=== PATIENT | male | born 1980 | race Caucasian/White ===

== ENCOUNTER 2017-09-19 08:28 | Inpatient (IN) | payer SELFPAY ==
[2017-09-19] VITALS (22 sets, daily range): BP systolic 81–124; BP diastolic 50–101
[~2017-09-19] VITALS: Ht 177.8 cm; Wt 79.7 kg
[2017-09-19 08:59] LABS: BASOPHIL (%) 0.5 % (0-1); BASOPHIL COUNT 0.1 K/uL (0-0.1); EOSINOPHIL (%) 1.7 % (0-5); EOSINOPHIL COUNT 0.2 K/uL (0-0.3); HEMATOCRIT 43.3 % (38.0-50.0); HEMOGLOBIN 14.9 G/DL (12.5-16.6); IMMATURE GRANULOCYTE (%) 0.4 % (0.0-0.7); LYMPHOCYTE (%) 26.6 % (15-42); LYMPHOCYTE COUNT 3.1 K/uL (1.0-2.8); MCHC 34.4 G/DL (30.0-36.0); MCV 92.9 FL (86-99); MONOCYTE (%) 3.6 % (3-12); MONOCYTE COUNT 0.4 K/uL (0-0.8); NEUTROPHIL (%) 67.2 % (45-76); NEUTROPHIL COUNT 7.9 K/uL (1.8-6.4); PLATELET COUNT 275 K/uL (156-360); RBC DIS.WIDTH-CV 13.2 % (11.8-14.6); RED BLOOD COUNT 4.66 M/uL (4.00-5.50); WHITE BLOOD COUNT 11.8 K/uL (4.1-10.2)
[2017-09-19 09:09] LABS: PTT 27.4 SEC (25-37)
[2017-09-19 09:10] LABS: AMYLASE 65 IU/L (1-118); CHLORIDE 102 mEq/L (99-109); POTASSIUM 3.6 mEq/L (3.7-5.4); SODIUM 137 mEq/L (136-147)
[2017-09-19 09:12] LABS: GLUCOSE 226 mg/dL (70-99)
[2017-09-19 09:15] LABS: SERUM ETHYL ALCOHOL < 10 mg/dL
[2017-09-19 09:16] LABS: CREATININE 1.2 mg/dL (0.6-1.3); GFR ESTIMATE (CALCULATED) > 59 mL/min/ (58.99-99999)
[2017-09-19 09:17] LABS: UREA NITROGEN (BUN) 14 mg/dL (9-23)
[2017-09-19 09:19] LABS: LIPASE 21 U/L (1.0-51.0)
[2017-09-19 09:20] LABS: TROP-I INTERPRETATION NEGATIVE; TROPONIN-I < 0.01 ng/mL (0.0-0.30)
[2017-09-19 16:55] LABS: TROP-I INTERPRETATION POSITIVE; TROPONIN-I 34.11 ng/mL (0.0-0.30)
[2017-09-19 21:41] LABS: TROP-I INTERPRETATION POSITIVE; TROPONIN-I 32.31 ng/mL (0.0-0.30)
[2017-09-20] VITALS (20 sets, daily range): BP systolic 81–97; BP diastolic 48–65
[2017-09-20 03:19] LABS: BASOPHIL (%) 0.3 % (0-1); EOSINOPHIL (%) 0.6 % (0-5); EOSINOPHIL COUNT 0.1 K/uL (0-0.3); HEMATOCRIT 37.4 % (38.0-50.0); HEMOGLOBIN 13.1 G/DL (12.5-16.6); IMMATURE GRANULOCYTE (%) 0.4 % (0.0-0.7); LYMPHOCYTE (%) 20.1 % (15-42); LYMPHOCYTE COUNT 2.3 K/uL (1.0-2.8); MCH 32.1 PG (29.0-34.0); MCV 91.7 FL (86-99); MONOCYTE (%) 4.5 % (3-12); MONOCYTE COUNT 0.5 K/uL (0-0.8); NEUTROPHIL (%) 74.1 % (45-76); NEUTROPHIL COUNT 8.4 K/uL (1.8-6.4); PLATELET COUNT 209 K/uL (156-360); RBC DIS.WIDTH-CV 13.2 % (11.8-14.6); RBC DIS.WIDTH-SD 44.9 % (39-53); RED BLOOD COUNT 4.08 M/uL (4.00-5.50); WHITE BLOOD COUNT 11.3 K/uL (4.1-10.2)
[2017-09-20 03:31] LABS: CHLORIDE 109 mEq/L (99-109); SODIUM 138 mEq/L (136-147)
[2017-09-20 03:33] LABS: GLUCOSE 89 mg/dL (70-99)
[2017-09-20 03:36] LABS: CREATININE 0.9 mg/dL (0.6-1.3); GFR ESTIMATE (CALCULATED) > 59 mL/min/ (58.99-99999)
[2017-09-20 03:37] LABS: UREA NITROGEN (BUN) 11 mg/dL (9-23)
[2017-09-20 03:41] LABS: TROP-I INTERPRETATION POSITIVE
[2017-09-20 03:42] LABS: TROPONIN-I 26.27 ng/mL (0.0-0.30)
[2017-09-20 04:25] LABS: HDL CHOLESTEROL 30 MG/DL (Desirable>=40); LDL CHOLESTEROL 150 mg/dL (Desirable<100); NON-HDL CHOLESTEROL 167 mg/dL (Desirable<160); TOTAL CHOLESTEROL 197 mg/dL (Desirable<200); TRIGLYCERIDES 87 MG/DL (Normal: <150)
[2017-09-20 10:04] LABS: TROP-I INTERPRETATION POSITIVE; TROPONIN-I 18.17 ng/mL (0.0-0.30)
[2017-09-21 01:10] VITALS: BP 94/55
[2017-09-21 03:55] VITALS: BP 108/57
[2017-09-21 07:20] VITALS: BP 88/54
[2017-09-21 10:23] LABS: HEMOGLOBIN A1c (GLYCOHEMOGLOB) 5.3 % (Below 5.7)
[2017-09-21 10:23] LABS: HEMOGLOBIN A1c (GLYCOHEMOGLOB) 5.2 % (Below 5.7)
[2017-09-21 11:10] VITALS: BP 86/51
[2017-09-21] MEDS ORDERED: NICOTINE PATCH1 EAC2 TD (11:45)
[2017-09-21] MEDS ORDERED: LISINOPRIL2.5 MG PO (11:45)
[2017-09-21] MEDS ORDERED: LOPRESSOR25 MG PO (11:45)
[2017-09-21] MEDS ORDERED: BRILINTA90 MG PO (11:45)
[2017-09-21] MEDS ORDERED: NITROSTAT0.4 MG SL (11:45)
[2017-09-21] MEDS ORDERED: ATORVASTATIN CA40 MG PO (11:45)
[2017-09-21] MEDS ORDERED: ASPIR-LOW81 MG PO (11:45)
== END 2017-09-21 13:58 | disposition home or self-care (01) | DRG 247 ==
LOC: EME 08:28 → ENRESERV 08:39 → EME 08:56 → CATH 09:13 → ENRESERV 09:37 → 4WEST 09:56 → ENRESERV 09-20 20:29 → 4EAST 09-20 21:35 → ENPENDDIS 09-21 → 4EAST 09-21 13:58
PROVIDERS: Emergency Medicine; Internal Medicine Cardiovascular Disease
DX: I21.21 ST elevation (STEMI) myocardial infarction involving left circumflex coronary artery (principal); I97.88 Other intraoperative complications of the circulatory system, not elsewhere classified; Y84.0 Cardiac catheterization as the cause of abnormal reaction of the patient, or of later complication, without mention of misadventure at the time of the procedure; I95.89 Other hypotension; I48.91 Unspecified atrial fibrillation; T44.7X5A Adverse effect of beta-adrenoreceptor antagonists, initial encounter; I47.2 Ventricular tachycardia; I25.10 Atherosclerotic heart disease of native coronary artery without angina pectoris; I45.10 Unspecified right bundle-branch block; R73.9 Hyperglycemia, unspecified; E78.5 Hyperlipidemia, unspecified; F17.200 Nicotine dependence, unspecified, uncomplicated; Z71.6 Tobacco abuse counseling; Z82.49 Family history of ischemic heart disease and other diseases of the circulatory system
CPT/HCPCS: 80048; 80061; 81003; 82150; 83036; 83690; 84484; 85025; 85347; 85610; 85730; 86850; 86900; 86901; 87641; 93005; 93306; 99281; 99283; C1725; C1760; C1769; C1874; C1887; C1894; G0480; J0461; J1200; J1644; J2250; J3010; J3246; J7030